=== PATIENT | female | born 1990 | race American Indian/Alaskan Native ===

== ENCOUNTER 2020-12-06 21:54 | Emergency (ER) | payer MEDICAID ==
[2020-12-06 22:09] VITALS: BP 139/72
[2020-12-06 22:32] LABS: Basophils % (Auto) 0.4 % (0.0-1.8); Eosinophils # (Auto) 0.1 K/mm3 (0.0-0.4); Hemoglobin 10.1 gm/dl (10.1-14.3); Lymphocytes # (Auto) 1.4 K/mm3 (1.2-5.4); Lymphocytes % (Auto) 23.7 % (13.4-35.0); Mean Corpuscular HGB Conc 34 % (30-34); Mean Corpuscular Volume 90 fl (79-97); Monocytes # (Auto) 0.4 K/mm3 (0.0-0.8); Platelet Count 257 K/mm3 (140-440); Red Blood Count 3.33 M/mm3 (3.65-5.03); Red Cell Distribution Width 14.4 % (13.2-15.2)
[2020-12-06 22:54] LABS: Alanine Aminotransferase 10 units/L (7-56); Albumin 4.1 g/dL (3.9-5); Blood Urea Nitrogen 7 mg/dL (7-17); Calcium 8.9 mg/dL (8.4-10.2); Hemolysis Index 3
[2020-12-06 22:59] LABS: BUN/Creatinine Ratio 12
[2020-12-06] MEDS ORDERED: POTASSIUM CHLORIDE ER 20 MEQ TAB PO ONE (23:04)
--- NOTE | 2020-12-06 23:13 | Emergency Department Report ---
ED General Adult HPI - General Chief complaint: Vaginal Bleeding Stated complaint: ABD CRAMPING/VAGINAL BLEEDING/ Time Seen by Provider: 12/06/20 22:11 Source: patient Mode of arrival: Ambulatory Limitations: No Limitations - History of Present Illness Initial comments: Patient is a 22-year-old female presents emergency room complaints of lower abdominal cramping that began last night. She states that she began having vaginal bleeding yesterday but worsened today. She states that while in the emergency department she went to go to the bathroom and felt a gush of something come out of the vaginal canal and that her pain completely resolved afterwards. She states her last menstrual cycle was 08/24/2020. She states that she has been going to [facility]. She states that she was advised that she was in September. She states that she had ultrasound performed by her [facility] in approximately October which showed a gestational sac but no fetus, she states that she went back a week later and had another ultrasound performed which again showed a sac but no fetus. She states that she went back November 05 and had blood work drawn and states that her hCG quant had decreased. She states that she has not followed up with her [facility] since then. No past medical history. No allergies to medications. /P: 1/A:1 - Related Data Allergies Allergy/AdvReac Type Severity Reaction Status Date / Time No Known Allergies Allergy Unverified 12/06/20 21:57 ED Review of Systems ROS: Stated complaint: ABD CRAMPING/VAGINAL BLEEDING/ Other details as noted in HPI Comment: All other systems reviewed and negative ED Past Medical Hx - Past Medical History Previous Medical History?: No - Surgical History Past Surgical History?: Yes Additional Surgical History: CSection - Social History Smoking Status: Never Smoker ED Physical Exam - General Limitations: No Limitations General appearance: alert, in no apparent distress - Head Head exam: Present: atraumatic, normocephalic - Eye Eye exam: Present: normal appearance - ENT ENT exam: Present: mucous membranes moist - Respiratory Respiratory exam: Present: normal lung sounds bilaterally. Absent: respiratory distress, wheezes, rales, rhonchi, stridor, chest wall tenderness, accessory muscle use, decreased breath sounds, prolonged expiratory - Cardiovascular Cardiovascular Exam: Present: regular rate, normal rhythm, normal heart sounds. Absent: systolic murmur, diastolic murmur, rubs, gallop - GI/Abdominal GI/Abdominal exam: Present: soft, normal bowel sounds. Absent: distended, tenderness, guarding, rebound, rigid - Speculum exam: Present: other (food service steward:jhoan, tech, there is an intact 6 cm sac which appears consistent with a gestation sac that is completely exited from the vaginal canal, upon speculum examination there is a small amount of blood in the vaginal vault, no other products of conception visualized, no significant bleeding) - Neurological Exam Neurological exam: Present: alert, oriented X3 - Psychiatric Psychiatric exam: Present: normal affect, normal mood - Skin Skin exam: Present: warm, dry, intact ED Course Vital Signs 12/06/20 12/07/20 21:59 00:17 Temperature 98.0 F Pulse Rate 96 H 85 Respiratory 14 17 Rate Blood Pressure 139/72 O2 Sat by Pulse 97 99 Oximetry ED Medical Decision Making - Lab Data Result diagrams: 12/06/20 22:22 12/06/20 22:22 Lab Results 12/06/20 12/06/20 12/06/20 Range/Units 22:22 22:22 22:22 WBC 5.9 (4.5-11.0) K/mm3 RBC 3.33 L (3.65-5.03) M/mm3 Hgb 10.1 (10.1-14.3) gm/dl Hct 30.0 L (30.3-42.9) % MCV 90 (79-97) fl MCH 30 (28-32) pg MCHC 34 (30-34) % RDW 14.4 (13.2-15.2) % Plt Count 257 (140-440) K/mm3 Lymph % (Auto) 23.7 (13.4-35.0) % Gilliam % (Auto) 7.0 (0.0-7.3) % Eos % (Auto) 2.0 (0.0-4.3) % Baso % (Auto) 0.4 (0.0-1.8) % Lymph # (Auto) 1.4 (1.2-5.4) K/mm3 Gilliam # (Auto) 0.4 (0.0-0.8) K/mm3 Eos # (Auto) 0.1 (0.0-0.4) K/mm3 Baso # (Auto) 0.0 (0.0-0.1) K/mm3 Seg Neutrophils % 66.9 (40.0-70.0) % Seg Neutrophils # 4.0 (1.8-7.7) K/mm3 Sodium 136 L (137-145) mmol/L Potassium 3.3 L (3.6-5.0) mmol/L Chloride 101.0 (98-107) mmol/L Carbon Dioxide 22 (22-30) mmol/L Anion Gap 16 mmol/L BUN 7 (7-17) mg/dL Creatinine 0.6 (0.6-1.2) mg/dL Estimated GFR > 60 ml/min BUN/Creatinine Ratio 12 % Glucose 105 H (65-100) mg/dL Calcium 8.9 (8.4-10.2) mg/dL Total Bilirubin 0.30 (0.1-1.2) mg/dL AST 15 (5-40) units/L ALT 10 (7-56) units/L Alkaline Phosphatase 67 (35-129) units/L Total Protein 7.3 (6.3-8.2) g/dL Albumin 4.1 (3.9-5) g/dL Albumin/Globulin Ratio 1.3 % HCG, Quant 653.7 H (0-4) mIU/mL Urine Color (Yellow) Urine Turbidity (Clear) Urine pH (5.0-7.0) Ur Specific [place] (1.003-1.030) Urine Protein (Negative) mg/dL Urine Glucose (UA) (Negative) mg/dL Urine Ketones (Negative) mg/dL Urine Blood (Negative) Urine Nitrite (Negative) Urine Bilirubin (Negative) Urine Urobilinogen (<2.0) mg/dL Ur Leukocyte Esterase (Negative) Urine WBC (Auto) (0.0-6.0) /HPF Urine RBC (Auto) (0.0-6.0) /HPF U Epithel Cells (Auto) (0-13.0) /HPF Urine Mucus /HPF Blood Type 12/06/20 12/06/20 Range/Units 22:22 Unknown WBC (4.5-11.0) K/mm3 RBC (3.65-5.03) M/mm3 Hgb (10.1-14.3) gm/dl Hct (30.3-42.9) % MCV (79-97) fl MCH (28-32) pg MCHC (30-34) % RDW (13.2-15.2) % Plt Count (140-440) K/mm3 Lymph % (Auto) (13.4-35.0) % Gilliam % (Auto) (0.0-7.3) % Eos % (Auto) (0.0-4.3) % Baso % (Auto) (0.0-1.8) % Lymph # (Auto) (1.2-5.4) K/mm3 Gilliam # (Auto) (0.0-0.8) K/mm3 Eos # (Auto) (0.0-0.4) K/mm3 Baso # (Auto) (0.0-0.1) K/mm3 Seg Neutrophils % (40.0-70.0) % Seg Neutrophils # (1.8-7.7) K/mm3 Sodium (137-145) mmol/L Potassium (3.6-5.0) mmol/L Chloride (98-107) mmol/L Carbon Dioxide (22-30) mmol/L Anion Gap mmol/L BUN (7-17) mg/dL Creatinine (0.6-1.2) mg/dL Estimated GFR ml/min BUN/Creatinine Ratio % Glucose (65-100) mg/dL Calcium (8.4-10.2) mg/dL Total Bilirubin (0.1-1.2) mg/dL AST (5-40) units/L ALT (7-56) units/L Alkaline Phosphatase (35-129) units/L Total Protein (6.3-8.2) g/dL Albumin (3.9-5) g/dL Albumin/Globulin Ratio % HCG, Quant (0-4) mIU/mL Urine Color Yellow (Yellow) Urine Turbidity Slightly-cloudy (Clear) Urine pH 5.0 (5.0-7.0) Ur Specific [place] 1.024 (1.003-1.030) Urine Protein 100 mg/dl (Negative) mg/dL Urine Glucose (UA) Neg (Negative) mg/dL Urine Ketones 20 (Negative) mg/dL Urine Blood Lg (Negative) Urine Nitrite Neg (Negative) Urine Bilirubin Neg (Negative) Urine Urobilinogen < 2.0 (<2.0) mg/dL Ur Leukocyte Esterase Neg (Negative) Urine WBC (Auto) 10.0 H (0.0-6.0) /HPF Urine RBC (Auto) > 182.0 (0.0-6.0) /HPF U Epithel Cells (Auto) 2.0 (0-13.0) /HPF Urine Mucus 1+ /HPF Blood Type A POSITIVE - Radiology Data Radiology results: report reviewed Ordering Physician: CARMELINA MARISCAL Date of Service: 12/06/20 Procedure(s): US OB <= 14 weeks fetus Accession Number(s): [id number] cc: CARMELINA MARISCAL ULTRASOUND OBSTETRIC INDICATION / CLINICAL INFORMATION: Bleeding, cramping, passed gestational sac. Clinical Gestational Age (GA) in weeks, days: 14.6 TECHNIQUE: Transabdominal. COMPARISON: None available. FINDINGS: Uterus: No intrauterine is seen. No retained products of gestation are seen. The endometrial stripe measures 5 mm. ADNEXA: Right ovary is unremarkable. The left ovary is not seen. FREE FLUID: None. ADDITIONAL FINDINGS: None. IMPRESSION: 1. No intrauterine seen.. No retained products of gestation are seen. Signer Name: Bryce Sesay MD Signed: 12/06/2020 11:52 PM Workstation Name: [id number] Transcribed By: SS Dictated By: Bryce Sesay MD Electronically Authenticated By: Bryce Sesay MD Signed Date/Time: 12/06/202351 DD/ 48 TD/TT: Print - Medical Decision Making Patient is a 22-year-old female presents emergency room complaints of lower abdominal cramping that began last night. She states that she began having vaginal bleeding yesterday but worsened today. She states that while in the emergency department she went to go to the bathroom and felt a gush of something come out of the vaginal canal and that her pain completely resolved afterwards. She states her last menstrual cycle was 08/24/2020. She states that she has been going to [place] [facility]. She states that she was advised that she was in September. She states that she had ultrasound performed by her [facility] in approximately October which showed a gestational sac but no fetus, she states that she went back a week later and had another ultrasound performed which again showed a sac but no fetus. She states that she went back November 05 and had blood work drawn and states that her hCG quant had decreased. She sta anneliese that she has not followed up with her [facility] since then. No past medical history. No allergies to medications. /P: 1/A:1. Vitals are stable. On exam no abdominal tenderness to palpation, no guarding, no rebound, no rigidity, normal bowel sounds, no peritoneal signs, food service steward:jhoan, tech, there is an intact 6 cm sac which appears consistent with a gestation sac that is completely exited from the vaginal canal, upon speculum examination there is a small amount of blood in the vaginal vault, no other products of conception visualized, no significant bleeding. Labs with hypokalemia 3.3, repleted with K-Jada. hCG quant is 653. Patient is Rh+. UA shows many red blood cells, there is small amount of white blood cells, no leukocyte esterase, no nitrites, patient is not having any urinary symptoms, likely secondary to contamination, do not suspect UTI. ultrasound: 1. No intrauterine seen.. No retained products of gestation are seen. Results appear consistent with complete . Discussed all results with patient answered questions. Advised patient Please increase your fluid intake. May take Tylenol or ibuprofen as needed for any cramping. Follow-up with [facility]. Please practice pelvic rest. Return to emergency room for any worsening symptoms. Critical care attestation.: If time is entered above; I have spent that time in minutes in the direct care of this critically ill patient, excluding procedure time. ED Disposition Clinical Impression: Complete , Hypokalemia Disposition: TO HOME OR SELFCARE Is pt being admited?: No Does the pt Need Aspirin: No Condition: Stable Instructions: Miscarriage, [id number], Potassium Content of Foods, Managing P regnancy Loss Additional Instructions: Please increase your fluid intake. May take Tylenol or ibuprofen as needed for any cramping. Follow-up with [facility]. Please practice pelvic rest. Return to emergency room for any worsening symptoms. Referrals: PRIMARY CARE, [Primary Care Provider] - 2-3 Days your, supervisor mill [Other] - 2-3 Days Time of Disposition: 23:59 Print Language: SERBIAN
[2020-12-06 23:19] LABS: Bilirubin,Urine NEG (Negative); Blood,Urine LG (Negative); Color,Urine Yellow (Yellow); Mucus,Urine 1+ /HPF; RBC,Urine > 182.0 /HPF (0.0-6.0); Urobilinogen,Urine < 2.0 mg/dL (<2.0)
--- NOTE | 2020-12-06 23:56 | Ultrasound Report ---
ULTRASOUND OBSTETRIC INDICATION / CLINICAL INFORMATION: Bleeding, cramping, passed gestational sac. Clinical Gestational Age (GA) in weeks, days: 14.6 TECHNIQUE: Transabdominal. COMPARISON: None available. FINDINGS: Uterus: No intrauterine is seen. No retained products of gestation are seen. The endometria l stripe measures 5 mm. ADNEXA: Right ovary is unremarkable. The left ovary is not seen. FREE FLUID: None. ADDITIONAL FINDINGS: None. IMPRESSION: 1. No intrauterine seen.. No retained products of gestation are seen. Signer Name: Bryce Sesay MD Signed: 12/06/2020 11:52 PM Workstation Name: [id number]
== END 2020-12-07 00:17 | disposition home or self-care (01) ==
LOC: ED 21:54
DX: O03.9 Complete or unspecified spontaneous abortion without complication (principal); O26.891 Other specified pregnancy related conditions, first trimester; E87.6 Hypokalemia; Z3A.14 14 weeks gestation of pregnancy; Z98.890 Other specified postprocedural states
CPT/HCPCS: 36415; 76801; 80053; 81001; 84702; 85025; 86900; 86901; 87086

== ENCOUNTER 2021-07-04 08:09 | Emergency (ER) | payer MEDICAID ==
[2021-07-04] MEDS ORDERED: ZIPRASIDONE MESYLATE 20 MG VIAL IM ONE (08:46)
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
[2021-07-04 09:02] LABS: Amphetamine Screen,Urine Negative; Benzodiazepines Screen,Urine Negative; Cannabinoid Screen,Urine Negative; Cocaine Screen,Urine Negative; Methadone Screen,Urine Negative; Opiate Screen,Urine Negative
[2021-07-04 09:05] LABS: Bacteria,Urine 2+ /HPF (Negative); Bilirubin,Urine NEG (Negative); Blood,Urine SM (Negative); Color,Urine Yellow (Yellow); Mucus,Urine 2+ /HPF
[2021-07-04 09:12] LABS: Basophils % (Auto) 0.4 % (0.0-1.8); Eosinophils % (Auto) 0.1 % (0.0-4.3); Hematocrit 34.6 % (30.3-42.9); Hemoglobin 11.6 gm/dl (10.1-14.3); Lymphocytes # (Auto) 0.8 K/mm3 (1.2-5.4); Lymphocytes % (Auto) 13.2 % (13.4-35.0); Mean Corpuscular HGB Conc 34 % (30-34); Mean Corpuscular Volume 91 fl (79-97); Monocytes # (Auto) 0.4 K/mm3 (0.0-0.8); Monocytes % (Auto) 6.8 % (0.0-7.3); Platelet Count 278 K/mm3 (140-440); Red Blood Count 3.81 M/mm3 (3.65-5.03); Red Cell Distribution Width 14.6 % (13.2-15.2)
[2021-07-04 09:16] LABS: Alanine Aminotransferase 17 units/L (7-56); Albumin 4.4 g/dL (3.9-5); Bilirubin,Direct < 0.2 mg/dL (0-0.2)
[2021-07-04 09:31] LABS: Blood Urea Nitrogen 5 mg/dL (7-17); Hemolysis Index 30
[2021-07-04 09:32] LABS: BUN/Creatinine Ratio 7
[2021-07-04] MEDS ORDERED: NITROFURANTOIN MONOHYD/M-CRYST 100 MG CAP PO SCH (11:00)
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
[2021-07-04 20:27] VITALS: BP 140/91
== END 2021-07-04 20:35 ==
LOC: ED 08:09
DX: F29 Unspecified psychosis not due to a substance or known physiological condition (principal); Z13.30 Encounter for screening examination for mental health and behavioral disorders, unspecified; Z98.890 Other specified postprocedural states; Z79.899 Other long term (current) drug therapy; Z20.822 Contact with and (suspected) exposure to COVID-19
CPT/HCPCS: 36415; 80048; 80076; 80307; 81001; 84703; 85025; 87086; 96372; 99285; J3486; U0003; 80320; G0480

== ENCOUNTER 2021-07-09 18:43 | Emergency (ER) | payer MEDICAID ==
[2021-07-09 19:00] VITALS: BP 143/89
[2021-07-09] MEDS ORDERED: IBUPROFEN 600 MG TAB PO ONE (19:52)
[2021-07-09] MEDS ORDERED: ACETAMINOPHEN 500 MG TAB PO ONE (19:52)
--- NOTE | 2021-07-09 20:05 | Emergency Department Report ---
ED Back Pain/Injury HPI - General Chief Complaint: Back Pain/Injury Stated Complaint: BACK PAIN Source: patient Limitations: No Limitations - History of Present Illness Initial Comments: Patient is a 30-year-old -Martiniquais female with a history of bipolar disorder, anxiety and depression who presents to the ED with complaint of acute onset persistent severe low back pain for the last 2 days. Patient states that she was running in administration recently for acute exacerbation of her mental health and had to get an injection for her chronic depression and bipolar. Patient states that instead of getting injection on her right gluteal muscles she was given the injection on her left lumbosacral paraspinal area and resulted in swelling, pain and that she is unable to walk because of persistent pain, forcing her to lean on her right side as she walks to eat some pain. Patient states that she raised objection to this act but it was too late because the medication already been administered on the site. Patient denies fall, numbness and tingling or weakness of lower extremities bilaterally, chest pain, shortness of breath, fever, chills, nausea, vomiting or neck pain. Patient also denies suicidal or homicidal ideations. MD Complaint: back pain (Low back pain, after injection), other (Localized low back pain from injection site) -: Sudden, days(s) (2) Similar Symptoms Previously: No Place: other ([facility]) Radiation: none Severity: severe Severity scale (0 -10): 7 Quality: sharp, aching Consistency: constant Improves With: none Worsens With: movement, walking Context: other (Localized pain on injection site at area behavioral [facility] facility) Associated Symptoms: denies other symptoms. denies: confusion, weakness, chest pain, numbness, cough, difficulty urinating, diaphoresis, incontinence, constipation, abdominal pain, loss of appetite, malaise, nausea/vomiting, rash, seizure, shortness of breath, syncope - Related Data Previous Rx's Medication Instructions Recorded Last Taken Type Diclofenac Sodium 50 mg PO Q8H PRN #30 tablet. 07/09/21 Unknown Rx Sulfamethoxazole/Trimethoprim 1 each PO Q12H #20 tablet 07/09/21 Unknown Rx [Bactrim DS TAB] methOCARBAMOL [Robaxin TAB] 750 mg PO Q8H PRN #21 tablet 07/09/21 Unknown Rx Allergies Allergy/AdvReac Type Severity Reaction Status Date / Time No Known Allergies Allergy Unverified 12/06/20 21:57 ED Review of Systems ROS: Stated complaint: BACK PAIN Other details as noted in HPI Constitutional: denies: chills, fever Eyes: denies: eye pain, eye discharge, vision change ENT: denies: ear pain, throat pain Respiratory: denies: cough, shortness of breath, wheezing Cardiovascular: denies: chest pain, palpitations Endocrine: no symptoms reported Gastrointestinal: denies: abdominal pain, nausea, diarrhea Genitourinary: denies: urgency, dysuria, discharge Musculoskeletal: back pain (Localized low back pain at an injection site). denies: joint swelling, arthralgia Skin: other (Localized pain on an injection site in the low back). denies: rash, lesions Neurological: denies: headache, weakness, paresthesias Psychiatric: denies: anxiety, depression Hematological/Lymphatic: denies: easy bleeding, easy bruising ED Past Medical Hx - Past Medical History Previous Medical History?: Yes Hx Hypertension: Yes Hx Psychiatric Treatment: Yes (bipolar; anxiety and depression) - Surgical History Past Surgical History?: Yes Additional Surgical History: CSection - Social History Smoking Status: Never Smoker Substance Use Type: None - Medications Home Medications: Home Medications Medication Instructions Recorded Confirmed Last Taken Type Diclofenac Sodium 50 mg PO Q8H PRN #30 tablet. 07/09/21 Unknown Rx Sulfamethoxazole/Trimethoprim 1 each PO Q12H #20 tablet 07/09/21 Unknown Rx [Bactrim DS TAB] methOCARBAMOL [Robaxin TAB] 750 mg PO Q8H PRN #21 tablet 07/09/21 Unknown Rx ED Physical Exam - General Limitations: No Limitations General appearance: alert, in no apparent distress - Head Head exam: Present: atraumatic, normocephalic, normal inspection - Eye Eye exam: Present: normal appearance, PERRL, EOMI Pupils: Present: normal accommodation - ENT ENT exam: Present: normal exam, normal orophraynx, mucous membranes moist, TM's normal bilaterally, normal external ear exam - Neck Neck exam: Present: normal inspection, full ROM - Respiratory Respiratory exam: Present: normal lung sounds bilaterally. Absent: respiratory distress, wheezes, rales, chest wall tenderness, accessory muscle use, decreased breath sounds - Cardiovascular Cardiovascular Exam: Present: normal rhythm, tachycardia, normal heart sounds. Absent: systolic murmur, diastolic murmur, rubs, gallop - GI/Abdominal GI/Abdominal exam: Present: soft, normal bowel sounds. Absent: tenderness, guarding, rebound, hyperactive bowel sounds, organomegaly - Extremities Exam Extremities exam: Present: normal inspection, full ROM, normal capillary refill - Back Exam Back exam: Present: normal inspection, full ROM, tenderness (Palpable localized left lateral lumbosacral tenderness with localized swelling at an injection site), muscle spasm, paraspinal tenderness, other (No midline tenderness; no erythema or fluctuance). Absent: CVA tenderness (R), vertebral tenderness - Neurological Exam Neurological exam: Present: alert, oriented X3, CN II-XII intact, normal gait, reflexes normal - Psychiatric Psychiatric exam: Present: normal affect, normal mood - Skin Skin exam: Present: warm, dry, intact, normal color, other (Palpable tenderness on left lateral lumbar sacral area of previous injection site). Absent: rash ED Course Vital Signs 07/09/21 18:58 Temperature 98.3 F Pulse Rate 122 H Respiratory 18 Rate Blood Pressure 143/89 [Right] O2 Sat by Pulse 96 Oximetry ED Medical Decision Making - Medical Decision Making This is a 30-year-old -Martiniquais female with a history of bipolar disorder, anxiety and depression who presents to the ED with complaint of acute onset persistent severe low back pain for the last 2 days. Patient states that she was running in administration recently for acute exacerbation of her mental health and had to get an injection for her chronic depression and bipolar. Patient states that instead of getting injection on her right gluteal muscles she was given the injection on her left lumbosacral paraspinal area and resulted in swelling, pain and that she is unable to walk because of persistent pain, forcing her to lean on her right side as she walks to eat some pain. Patient states that she raised objection to this act but it was too late because the medication already been administered on the site. In the ED, patient is alert and oriented x3 and is not in any distress. Patient is however tachycardic, afebrile and anxious in triage. On reevaluation, patient's tachycardia resolved. Patient was treated for pain in the ED and was discharged home on pain medication and prophylactic antibiotics and advised to follow-up with her primary care physician in 5 to 7 days for reevaluation or return to the ED immediately if symptoms get worse. - Differential Diagnosis Puncture wound; cellulitis; muscle spasm; muscle strain Critical care attestation.: If time is entered above; I have spent that time in minutes in the direct care of this critically ill patient, excluding procedure time. ED Disposition Clinical Impression: Acute low back pain due to trauma, Puncture wound of lower back without foreign body, Spasm of muscle of lower back Disposition: 01 HOME / SELF CARE / HOMELESS Is pt being admited?: No Does the pt Need Aspirin: No Condition: Stable Instructions: Puncture Wound, [id number], Back Injury Prevention, [id number], Muscle Cramps and Spasms, [id number] Additional Instructions: Take medication with food, drink plenty of fluids and follow-up with your primary care physician in 7 to 10 days for reevaluation. Return to the ED immediately if your symptoms get worse. Prescriptions: Sulfamethoxazole/Trimethoprim [Bactrim DS TAB] 1 each PO Q12H #20 tablet Diclofenac Sodium 50 mg PO Q8H PRN #30 tablet. PRN Reason: Pain , Severe (7-10) methOCARBAMOL [Robaxin TAB] 750 mg PO Q8H PRN #21 tablet PRN Reason: Muscle Spasm Referrals: [facility] [Provider Group] - 3-5 Days Time of Disposition: 20:08 Print Language: LATVIAN
== END 2021-07-09 20:33 | disposition home or self-care (01) ==
LOC: ED 18:43
DX: S31.030A Puncture wound without foreign body of lower back and pelvis without penetration into retroperitoneum, initial encounter (principal); M62.830 Muscle spasm of back; I10 Essential (primary) hypertension; F32.9 Major depressive disorder, single episode, unspecified; F41.9 Anxiety disorder, unspecified; X58.XXXA Exposure to other specified factors, initial encounter; Y93.89 Activity, other specified; Y92.89 Other specified places as the place of occurrence of the external cause; Y99.8 Other external cause status
CPT/HCPCS: 99282

== ENCOUNTER 2021-11-28 12:25 | Emergency (ER) | payer MEDICAID ==
[2021-11-28 14:58] LABS: Bacteria,Urine 1+ /HPF (Negative); Bilirubin,Urine NEG (Negative); Blood,Urine NEG (Negative); Color,Urine Yellow (Yellow); Mucus,Urine FEW /HPF; Protein,Urine <15 mg/dL mg/dL (Negative); Urobilinogen,Urine < 2.0 mg/dL (<2.0)
[2021-11-28] MEDS ORDERED: BUTALB/ACETAMINOPHEN/CAFFEINE TAB PO ONE (15:36)
[2021-11-28 16:48] LABS: Basophils % (Auto) 0.6 % (0.0-1.8); Eosinophils # (Auto) 0.1 K/mm3 (0.0-0.4); Eosinophils % (Auto) 1.6 % (0.0-4.3); Hematocrit 35.2 % (30.3-42.9); Hemoglobin 11.9 gm/dl (10.1-14.3); Lymphocytes # (Auto) 1.2 K/mm3 (1.2-5.4); Lymphocytes % (Auto) 27.8 % (13.4-35.0); Mean Corpuscular HGB Conc 34 % (30-34); Mean Corpuscular Volume 90 fl (79-97); Monocytes # (Auto) 0.3 K/mm3 (0.0-0.8); Platelet Count 275 K/mm3 (140-440); Red Blood Count 3.91 M/mm3 (3.65-5.03)
[2021-11-28 17:12] LABS: Alanine Aminotransferase 13 units/L (7-56); Albumin 4.2 g/dL (3.9-5); Blood Urea Nitrogen 10 mg/dL (7-17); Calcium 9.8 mg/dL (8.4-10.2); Hemolysis Index 2
[2021-11-28 17:13] LABS: BUN/Creatinine Ratio 17
--- NOTE | 2021-11-28 17:41 | Emergency Department Report ---
ED Abdominal Pain HPI - General Chief Complaint: Abdominal Pain Stated Complaint: HEADACHE SEVERAL DAYS/NAUSEA Time Seen by Provider: 11/28/21 15:34 Source: patient Mode of arrival: Ambulatory Limitations: No Limitations - History of Present Illness Initial Comments: 31-year-old black female with no past medical history presents to the emergency department for evaluation of 2-day history of headache and abdominal pain that started today. She denies fever, nausea, vomiting, diarrhea, dysuria, and vaginal discharge. She states that abdominal pain is diffuse and came out of nowhere today. She denies injury or trauma. She also complains of headache for the past 2 days unrelieved by Tylenol and ibuprofen. She states that she has some intermittent dizziness with headache but denies vision changes, photophobia, nausea, and vomiting. MD Complaint: abdominal pain -: Gradual, hour(s) Location: diffuse Radiation: none Migration to: no migration Severity scale (0 -10): 7 Quality: aching Consistency: intermittent Associated Symptoms: denies other symptoms - Related Data LMP (females 10-50): last week Previous Rx's Medication Instructions Recorded Last Taken Type Diclofenac Sodium 50 mg PO Q8H PRN #30 tablet. 07/09/21 Unknown Rx Sulfamethoxazole/Trimethoprim 1 each PO Q12H #20 tablet 07/09/21 Unknown Rx [Bactrim DS TAB] methOCARBAMOL [Robaxin TAB] 750 mg PO Q8H PRN #21 tablet 07/09/21 Unknown Rx Allergies Allergy/AdvReac Type Severity Reaction Status Date / Time No Known Allergies Allergy Unverified 12/06/20 21:57 ED Review of Systems ROS: Stated complaint: HEADACHE SEVERAL DAYS/NAUSEA Other details as noted in HPI Comment: All other systems reviewed and negative Constitutional: denies: chills, diaphoresis, fever, malaise, weakness Eyes: denies: eye pain, vision change ENT: denies: ear pain, dental pain, congestion Respiratory: denies: cough, shortness of breath, SOB with exertion, SOB at rest Cardiovascular: denies: chest pain, palpitations, dyspnea on exertion, orthopnea, edema, syncope Gastrointestinal: abdominal pain. denies: nausea, vomiting, diarrhea, popeye temesis, melena, hematochezia Genitourinary: denies: urgency, dysuria, frequency, hematuria, discharge Musculoskeletal: denies: back pain Skin: denies: lesions Neurological: headache. denies: weakness, paresthesias, confusion, abnormal gait, vertigo Psychiatric: denies: anxiety, depression ED Past Medical Hx - Past Medical History Previous Medical History?: Yes Hx Hypertension: Yes Hx Psychiatric Treatment: Yes (bipolar; anxiety and depression) - Surgical History Past Surgical History?: Yes Additional Surgical History: CSection - Social History Smoking Status: Never Smoker - Medications Home Medications: Home Medications Medication Instructions Recorded Confirmed Last Taken Type Diclofenac Sodium 50 mg PO Q8H PRN #30 tablet. 07/09/21 Unknown Rx Sulfamethoxazole/Trimethoprim 1 each PO Q12H #20 tablet 07/09/21 Unknown Rx [Bactrim DS TAB] methOCARBAMOL [Robaxin TAB] 750 mg PO Q8H PRN #21 tablet 07/09/21 Unknown Rx ED Physical Exam - General Limitations: No Limitations General appearance: alert, in no apparent distress - Head Head exam: Present: atraumatic, normocephalic - Eye Eye exam: Present: normal appearance. Absent: conjunctival injection - Neck Neck exam: Present: normal inspection, full ROM. Absent: tenderness, lymphadenopathy - Respiratory Respiratory exam: Absent: respiratory distress, wheezes, rales, rhonchi, stridor, chest wall tenderness, accessory muscle use - Cardiovascular Cardiovascular Exam: Present: regular rate, normal heart sounds - GI/Abdominal GI/Abdominal exam: Present: soft, normal bowel sounds. Absent: distended, tenderness, guarding, rebound - Extremities Exam Extremities exam: Present: normal inspection, normal capillary refill. Absent: pedal edema, joint swelling - Back Exam Back exam: Present: normal inspection. Absent: tenderness, CVA tenderness (R), CVA tenderness (L), paraspinal tenderness, vertebral tenderness - Neurological Exam Neurological exam: Present: alert, oriented X3, CN II-XII intact, normal gait, reflexes normal. Absent: motor sensory deficit - Expanded Neurological Exam Expanded Patient oriented to: Present: person, place, time Speech: Present: fluid speech Cranial nerves: EOM's Intact: Normal, Tongue Deviation: Normal, Nystagmus: Normal, Facial Sensation: Normal Ataxia: Absent: yes Motor strength exam: RUE: 5, LUE: 5, RLE: 5, LLE: 5 Best Eye Response (Shyann): (4) open spontaneously Best Motor Response (Shyann): (6) obeys commands Best Verbal Response (Orient): (5) oriented Orient Total: 15 - Psychiatric Psychiatric exam: Present: normal affect, normal mood - Skin Skin exam: Present: warm, dry, intact, normal color ED Course Vital Signs 11/28/21 11/28/21 13:48 17:44 Temperature 98.5 F 97.1 F L Pulse Rate 72 85 Respiratory 20 16 Rate Blood Pressure 121/73 121/67 [Right] O2 Sat by Pulse 100 Oximetry - Reevaluation(s) Reevaluation #1: 11/28/21 17:39 Headache resolved. ED Medical Decision Making - Lab Data Result diagrams: 11/28/21 16:24 11/28/21 16:24 - Medical Decision Making 31-year-old black female with no past medical history presents to the emergency department for evaluation of 2-day history of headache and abdominal pain that started today. She denies fever, nausea, vomiting, diarrhea, dysuria, and vaginal discharge. She states that abdominal pain is diffuse and came out of nowhere today. She denies injury or trauma. She also complains of headache for the past 2 days unrelieved by Tylenol and ibuprofen. She states that she has some intermittent dizziness with headache but denies vision changes, photophobia, nausea, and vomiting No gross abnormalities noted on exam. Patient without tenderness to palpation on abdominal exam, patient denies any abdominal pain at this time, and WBC count was within normal limits, low suspicion for acute abdomen. Headache completely resolved after Fioricet. Patient was advised to follow-up with primary care provider for further evaluation and management. She verbalized understanding of and agreement with plan of care. Critical care attestation.: If time is entered above; I have spent that time in minutes in the direct care of this critically ill patient, excluding procedure time. ED Disposition Clinical Impression: Abdominal pain Qualifiers: Abdominal location: generalized Qualified Code(s): R10.84 - Generalized abdominal pain Headache Qualifiers: Headache type: unspecified Headache chronicity pattern: acute headache Intractability: not intractable Qualified Code(s): R51.9 - Headache, unspecified Disposition: 01 HOME / SELF CARE / HOMELESS Is pt being admited?: No Does the pt Need Aspirin: No Condition: Stable Instructions: Abdominal Pain, Adult, [id number], General Headache Without Cause, [id number], Abdominal Pain (ED) Additional Instructions: Follow-up with primary care provider for further evaluation. Return to the emergency department for any concerning symptoms. Referrals: HUMPHREY WHITAKER MD [Referring] - 3-5 Days Time of Disposition: 17:41
[2021-11-28 17:47] VITALS: BP 121/67
== END 2021-11-28 17:44 | disposition home or self-care (01) ==
LOC: ED 12:25
DX: R10.84 Generalized abdominal pain (principal); R51.9 Headache, unspecified; I10 Essential (primary) hypertension
CPT/HCPCS: 36415; 80053; 81001; 83690; 84703; 85025; 99283